=== PATIENT | male | born 1990 | race Two or more races ===

== ENCOUNTER 2019-09-18 00:16 | Emergency (ER) | payer OTHER ==
[~2019-09-18] VITALS: Ht 172.7 cm; Wt 61.3 kg
[2019-09-18 03:34] LABS: ANION GAP 11 mmol/L (8-16); CALCIUM, TOTAL 9.7 mg/dL (8.8-10.5); CARBON DIOXIDE 28 mmol/L (22-29); CHLORIDE 99 mmol/L (98-107); CREATININE 1.24 mg/dL (0.60-1.30); GLOMERULAR FILTR. RATE CALC > 60 mL/min (>60); GLUCOSE,RANDOM 105 mg/dL (70-110); POTASSIUM 4.2 mmol/L (3.5-5.1); SODIUM SERUM 138 mmol/L (136-145); UREA NITROGEN, BLOOD 22 mg/dL (7-18)
[2019-09-18 03:39] LABS: ALANINE AMINOTRANSFERASE 17 U/L (12-78); ALBUMIN 5.3 g/dL (3.4-5.0); ALKALINE PHOSPHATASE 80 U/L (46-116); ASPARTATE AMINOTRANSFERASE 16 U/L (15-37); BILIRUBIN,TOTAL 1.3 mg/dL (0.1-1.0)
[2019-09-18 03:41] LABS: AMPHET/METH SCREEN,URINE POSITIVE (NEGATIVE); BARBITURATE SCREEN, URINE NEGATIVE (NEGATIVE); BENZODIAZEPINES SCREEN,URINE NEGATIVE (NEGATIVE); CANNABINOID SCREEN,URINE NEGATIVE (NEGATIVE); COCAINE SCREEN,URINE NEGATIVE (NEGATIVE); METHADONE SCREEN, URINE NEGATIVE (NEGATIVE); OPIATE SCREEN,URINE NEGATIVE (NEGATIVE)
[2019-09-18 03:46] LABS: PHENCYCLIDINE SCREEN,URINE NEGATIVE (NEGATIVE)
[2019-09-18 03:53] LABS: BASOPHILS % (AUTO) 0.5 % (0.0-2.0); EOSINOPHILS % (AUTO) 0.2 % (1.0-6.0); HEMATOCRIT 50.9 % (41-53); LYMPHOCYTES # (AUTO) 1.3 K/uL (1.0-4.8); LYMPHOCYTES % (AUTO) 10.6 % (22.0-44.0); MEAN CORPUSCULAR HEMOGLOBIN 31.1 pg (26.0-34.0); MEAN CORPUSCULAR HGB CONC 33.5 G/dL (31.0-37.0); MEAN CORPUSCULAR VOLUME 93 fL (80-100); MONOCYTES # (AUTO) 1.1 K/uL (0.1-1.0); MONOCYTES % (AUTO) 8.7 % (2.0-9.0); NEUTROPHILS # (AUTO) 10.1 K/uL (1.8-7.7); PLATELET COUNT (AUTO) 261 K/uL (150-450); RED BLOOD CELL COUNT(AUTO) 5.49 MIL/uL (4.50-5.90); RED CELL DISTRIBUTION WIDTH 13.1 % (11.5-14.5)
[2019-09-18] MEDS: LORazepam 2 MG TABLET PO ONE ×2 (04:54→05:27)
[2019-09-18 05:21] VITALS: BP 116/99
== END 2019-09-18 05:30 | disposition home or self-care (01) ==
LOC: EMS 00:16
DX: F15.120 Other stimulant abuse with intoxication, uncomplicated (principal); F17.210 Nicotine dependence, cigarettes, uncomplicated; F12.90 Cannabis use, unspecified, uncomplicated; Z88.0 Allergy status to penicillin
CPT/HCPCS: 36415; 80053; 80307; 85025; 99285; G0480